=== PATIENT | female | born 1950 | race Two or more races ===

== ENCOUNTER 2019-11-05 13:02 | Inpatient (IN) | payer OTHER ==
[~2019-11-05] VITALS: Ht 162.6 cm; Wt 70.2 kg
[2019-11-05 14:03] LABS: Eosinophils # (auto) 0.2 10 ^3/uL (0-0.8); Hemoglobin 8.1 g/dL (12.2-16.2); Lymphocytes # (auto) 0.3 10 ^3/uL (0.4-5.4); Monocytes # (auto) 0.4 10 ^3/uL (0-1.3)
[2019-11-05 14:05] LABS: Basophils # (auto) 0.1 10 ^3/uL (0-0.2); Basophils % (auto) 1.3 % (0.0-2.0); Eosinophils % (auto) 4.6 % (0.0-7.0); Hematocrit 26.4 % (36.0-46.0); Lymphocytes % (auto) 7.8 % (10.0-50.0); Mean Corpuscular Hemoglobin 27.7 pg (28.0-32.0); Mean Corpuscular Hgb Conc. 30.7 g/dL (32.0-36.0); Mean Corpuscular Volume 90.2 fL (80.0-100.0); Monocytes % (auto) 8.5 % (0.0-12.0); Neutrophils # (auto) 3.5 10 ^3/uL (1.6-8.6); Neutrophils % (auto) 77.8 % (37.0-80.0); Nucleated Red Blood Cells % 2.9 %; Platelet Count (auto) 118 10^3/uL (140-450); Red Blood Cells 2.92 10^6/uL (4.0-5.20); White Blood Cell 4.5 10^3/uL (4.4-10.8)
[2019-11-05 14:06] LABS: Red Cell Distribution Width 22.2 % (11.8-14.3)
[2019-11-05 14:08] LABS: INR 1.3 (0.9-1.15); Partial Thromboplastin Time 32.7 sec (23.64-32.05)
[2019-11-05 14:28] LABS: Albumin 2.9 g/dL (3.4-5.0); Potassium 4.7 mmol/L (3.5-5.1)
[2019-11-05] MEDS ORDERED: ALBUMIN 25% 50 ML IV ONE (14:30)
[2019-11-05] MEDS ORDERED: SODIUM CHL 0.9% 1000 ML BAG XX ONE (14:30)
[2019-11-05] MEDS ORDERED: BUMETANIDE 2.5mg/10ml (0.25 mg/ml) INJ IV ONE (14:30)
[2019-11-05] MEDS ORDERED: SODIUM BICARBONATE 8.4 % INJ 50ML VIAL IV ONE ×2 (14:30→16:30)
[2019-11-05 14:35] LABS: Bilirubin, Total 0.3 mg/dL (0.2-1.0); Total Protein 6.9 g/dL (6.4-8.2)
[2019-11-05 14:53] LABS: % Iron Saturation 12.1 % (15-50)
[2019-11-05 14:59] LABS: Calcium 5.4 mg/dL (8.5-10.1)
[2019-11-05 16:19] LABS: Hepatitis A Ab IgM Negative
[2019-11-05 16:20] LABS: Hepatitis B Core IgM Negative; Hepatitis B Surface Antigen Negative (Negative)
[2019-11-05 16:21] LABS: Hepatitis C Antibody Negative (Negative)
[2019-11-05] MEDS ORDERED: SODIUM FERR GLUC 62.5MG/5ML 125 MG in SODIUM CHL 0.9% 100 ML IV ONE (16:30)
[2019-11-05] MEDS ORDERED: NITROGLYCERIN 0.4 MG SL TAB SL PRN ×2 (17:30→18:15)
[2019-11-05] MEDS ORDERED: MORPHINE SULF INJ 2 MG/ML SYRINGE 1ML IV PRN ×3 (17:30→18:15)
[2019-11-05] MEDS: CALCIUM ACETATE 667 MG CAP PO SCH ×2 (18:00→19:14)
[2019-11-05] MEDS ORDERED: PIPERACILLIN-TAZOB 2.25GM 50 ML IV ONE (18:15)
[2019-11-05] MEDS ORDERED: LORazepam 0.5 MG TAB PO PRN (18:15)
[2019-11-05] MEDS ORDERED: SILVER NITRATE-POTAS NITRA STICK TOP ONE (18:15)
[2019-11-05] MEDS ORDERED: ALUM & MAG HYDROX-SIMETH LIQ(MAALOX) 30 ML PO PRN (18:15)
[2019-11-05] MEDS ORDERED: PIPERACILLIN-TAZOB 0.75 GM in D5W 5% 50 ML IV PRN (18:45)
[2019-11-05 20:30] VITALS: BP 142/74
[2019-11-05] MEDS ORDERED: EPOETIN ALFA 10,000 UNIT/1 ML VIAL SC ONE (21:00)
[2019-11-05 22:40] VITALS: BP 142/74
[2019-11-05] MEDS: MUPIROCIN 2% OINT 15gm or 22gm EACHNOSTRI SCH (22:59)
[2019-11-05] MEDS: MUPIROCIN 2% OINT 15gm or 22gm TOP SCH (23:00)
[2019-11-06] MEDS ORDERED: hydrALAZINE HCL 20 MG/ML VL IV PRN (03:15)
[2019-11-06] MEDS: HYDROcodone-ACET 5/325MG TAB PO PRN (05:13)
[2019-11-06 05:15] VITALS: BP 124/58
[2019-11-06 05:41] LABS: Basophils # (auto) 0 10 ^3/uL (0-0.2); Eosinophils # (auto) 0 10 ^3/uL (0-0.8); Lymphocytes # (auto) 0.2 10 ^3/uL (0.4-5.4); Mean Corpuscular Hgb Conc. 31.2 g/dL (32.0-36.0); Monocytes # (auto) 0.4 10 ^3/uL (0-1.3); White Blood Cell 3.8 10^3/uL (4.4-10.8)
[2019-11-06 05:45] LABS: Basophils % (auto) 0.7 % (0.0-2.0); Eosinophils % (auto) 0.7 % (0.0-7.0); Hematocrit 25.1 % (36.0-46.0); Hemoglobin 7.8 g/dL (12.2-16.2); Lymphocytes % (auto) 5.4 % (10.0-50.0); Mean Corpuscular Hemoglobin 27.7 pg (28.0-32.0); Mean Corpuscular Volume 88.9 fL (80.0-100.0); Monocytes % (auto) 9.9 % (0.0-12.0); Neutrophils # (auto) 3.1 10 ^3/uL (1.6-8.6); Neutrophils % (auto) 83.3 % (37.0-80.0); Nucleated Red Blood Cells % 2.9 %; Platelet Count (auto) 76 10^3/uL (140-450); Red Blood Cells 2.82 10^6/uL (4.0-5.20)
[2019-11-06 06:00] LABS: INR 1.35 (0.9-1.15); Partial Thromboplastin Time 37.3 sec (23.64-32.05)
[2019-11-06 06:02] LABS: Magnesium 1.8 mg/dL (1.6-2.6); Potassium 4.5 mmol/L (3.5-5.1)
[2019-11-06 06:05] LABS: Bilirubin, Total 0.4 mg/dL (0.2-1.0); Phosphorus 6.8 mg/dL (2.5-4.90); Total Protein 6.8 g/dL (6.4-8.2)
[2019-11-06 06:25] LABS: Red Cell Distribution Width 21.5 % (11.8-14.3)
[2019-11-06 06:36] LABS: Calcium 5.7 mg/dL (8.5-10.1)
[2019-11-06] MEDS ORDERED: SODIUM CHL 0.9% 1000 ML BAG XX ONE (08:45)
[2019-11-06 09:00] VITALS: BP 158/67
[2019-11-06] MEDS ORDERED: PIPERACILLIN-TAZOB 2.25GM 50 ML IV SCH (10:00)
[2019-11-06] MEDS: ENOXAPARIN SOD 30 MG/0.3 ML SYRINGE SC SCH (10:00)
[2019-11-06] MEDS: MUPIROCIN 2% OINT 15gm or 22gm EACHNOSTRI SCH ×2 (10:25→21:42)
[2019-11-06] MEDS: FUROSEMIDE 40 MG/4 ML VIAL IV SCH ×2 (10:26→10:28)
[2019-11-06] MEDS: MUPIROCIN 2% OINT 15gm or 22gm TOP SCH ×2 (10:27→21:42)
[2019-11-06] MEDS: ONDANSETRON HCL 4 MG/2 ML VIAL IV PRN ×2 (11:11→21:16)
[2019-11-06] MEDS ORDERED: IRON SUCROSE COMPLEX 200 MG in SODIUM CHL 0.9% 100 ML IV SCH (12:00)
[2019-11-06 13:00] VITALS: BP 141/69
[2019-11-06] MEDS: SODIUM FERR GLUC 125 MG in NS 100 ML IV SCH (13:16)
[2019-11-06] MEDS ORDERED: IODIXANOL 320MG/ML 100ML BTL IV ONE (14:27)
[2019-11-06] MEDS ORDERED: LIDOCAINE 2%HCL (LOCAL ANESTH.) INJ 20ML MDV ONE (14:27)
[2019-11-06] MEDS ORDERED: MIDAZOLAM HCL 1MG/1ML-2 ML VIAL ONE (15:03)
[2019-11-06] MEDS ORDERED: fentaNYL CITRATE 100 MCG/2 ML VL ONE (15:03)
[2019-11-06] MEDS ORDERED: ATROPINE SULF 1 MG/10ml SYR ONE (15:03)
[2019-11-06] MEDS ORDERED: HEPARIN SODIUM (PORCINE) 5000 UNITS/ML 1ML VIAL ONE (15:03)
[2019-11-06] MEDS ORDERED: PHENYLEPHRINE HCL 10 MG/ML VL ONE (15:32)
[2019-11-06] MEDS ORDERED: ONDANSETRON HCL 4 MG/2 ML VIAL IV PRN (16:30)
[2019-11-06 17:00] VITALS: BP_SYST 125; BP_SYST 158; BP_DIAS 67; BP_DIAS 69
[2019-11-06] MEDS ORDERED: FUROSEMIDE 40 MG/4 ML VIAL IV SCH (19:00)
[2019-11-06] MEDS ORDERED: EPOETIN ALFA 10,000 UNIT/1 ML VIAL SC ONE (21:00)
[2019-11-06 22:00] VITALS: BP 135/64
[2019-11-07 01:19] LABS: Urine Bacteria FEW /hpf (None Seen); Urine Blood 1+ /uL (Negative); Urine Specific Gravity 1.009 (1.001-1.035); Urine WBC 17 /hpf (0 - 5)
[2019-11-07 05:00] VITALS: BP 115/65
[2019-11-07] MEDS: ONDANSETRON HCL 4 MG/2 ML VIAL IV PRN ×2 (05:04→17:47)
[2019-11-07] MEDS: HYDROcodone-ACET 5/325MG TAB PO PRN ×2 (05:04→20:43)
[2019-11-07 09:00] VITALS: BP 128/67
[2019-11-07] MEDS: MUPIROCIN 2% OINT 15gm or 22gm EACHNOSTRI SCH ×2 (09:52→22:39)
[2019-11-07] MEDS: ENOXAPARIN SOD 30 MG/0.3 ML SYRINGE SC SCH (09:52)
[2019-11-07] MEDS: MUPIROCIN 2% OINT 15gm or 22gm TOP SCH ×2 (09:54→22:00)
[2019-11-07] MEDS: FUROSEMIDE 40 MG/4 ML VIAL IV SCH (09:54)
[2019-11-07 13:00] VITALS: BP 121/66
[2019-11-07] MEDS: SODIUM FERR GLUC 125 MG in NS 100 ML IV SCH (13:50)
[2019-11-07 17:39] VITALS: BP 155/81
[2019-11-07 22:00] VITALS: BP 147/80
[2019-11-08] MEDS: ONDANSETRON HCL 4 MG/2 ML VIAL IV PRN ×2 (04:50→11:33)
[2019-11-08] MEDS: HYDROcodone-ACET 5/325MG TAB PO PRN (04:50)
[2019-11-08 05:39] VITALS: BP 144/65
[2019-11-08 05:52] LABS: Eosinophils # (auto) 0 10 ^3/uL (0-0.8); Hemoglobin 7.6 g/dL (12.2-16.2); Monocytes # (auto) 0.6 10 ^3/uL (0-1.3); White Blood Cell 4.9 10^3/uL (4.4-10.8)
[2019-11-08 05:54] LABS: Basophils # (auto) 0.1 10 ^3/uL (0-0.2); Basophils % (auto) 1.2 % (0.0-2.0); Eosinophils % (auto) 0.6 % (0.0-7.0); Hematocrit 24.1 % (36.0-46.0); Lymphocytes # (auto) 0.4 10 ^3/uL (0.4-5.4); Lymphocytes % (auto) 7.5 % (10.0-50.0); Mean Corpuscular Hemoglobin 28.2 pg (28.0-32.0); Mean Corpuscular Hgb Conc. 31.4 g/dL (32.0-36.0); Mean Corpuscular Volume 89.8 fL (80.0-100.0); Monocytes % (auto) 12.1 % (0.0-12.0); Neutrophils # (auto) 3.8 10 ^3/uL (1.6-8.6); Neutrophils % (auto) 78.6 % (37.0-80.0); Platelet Count (auto) 72 10^3/uL (140-450); Red Blood Cells 2.68 10^6/uL (4.0-5.20)
[2019-11-08 06:08] LABS: Nucleated Red Blood Cells % 7.5 %; Red Cell Distribution Width 22.2 % (11.8-14.3)
[2019-11-08 06:18] LABS: Albumin 2.2 g/dL (3.4-5.0); Potassium 4.4 mmol/L (3.5-5.1)
[2019-11-08 06:22] LABS: BUN/Creatinine Ratio 8.5; Bilirubin, Total 0.3 mg/dL (0.2-1.0); Phosphorus 6.8 mg/dL (2.5-4.90); Total Protein 5.4 g/dL (6.4-8.2)
[2019-11-08] MEDS ORDERED: SODIUM CHL 0.9% 1000 ML BAG XX ONE (07:00)
[2019-11-08 07:29] LABS: Calcium 5.6 mg/dL (8.5-10.1)
[2019-11-08] MEDS: ENOXAPARIN SOD 30 MG/0.3 ML SYRINGE SC SCH (08:57)
[2019-11-08 09:00] VITALS: BP 143/78
[2019-11-08] MEDS: FUROSEMIDE 40 MG/4 ML VIAL IV SCH (09:03)
[2019-11-08] MEDS: MUPIROCIN 2% OINT 15gm or 22gm TOP SCH ×2 (09:04→22:00)
[2019-11-08] MEDS: MUPIROCIN 2% OINT 15gm or 22gm EACHNOSTRI SCH ×2 (09:04→22:11)
[2019-11-08] MEDS: CALCIUM ACETATE 667 MG CAP PO SCH ×2 (11:32→17:12)
[2019-11-08 13:00] VITALS: BP 133/71
[2019-11-08] MEDS: SODIUM FERR GLUC 125 MG in NS 100 ML IV SCH (15:11)
[2019-11-08 17:00] VITALS: BP 157/84
[2019-11-08 18:43] VITALS: BP 120/61
[2019-11-08] MEDS ORDERED: EPOETIN ALFA 10,000 UNIT/1 ML VIAL SC ONE (21:00)
== END 2019-11-08 22:30 | disposition left against medical advice (07) | DRG 673 ==
LOC: ER 13:02 → TELE 13:03 → TELE-WESTW 20:15
PROVIDERS: ADMIT Hospitalist; ATTEND Internal Medicine
PROC: 5A1D70Z Performance of Urinary Filtration, Intermittent, Less than 6 Hours Per Day (ICD-10-PCS; 2019-11-05)
PROC: 0JH63XZ Insertion of Tunneled Vascular Access Device into Chest Subcutaneous Tissue and Fascia, Percutaneous Approach (ICD-10-PCS; principal; 2019-11-06)
PROC: 02HV33Z Insertion of Infusion Device into Superior Vena Cava, Percutaneous Approach (ICD-10-PCS; 2019-11-06)
PROC: B5181ZA Fluoroscopy of Superior Vena Cava using Low Osmolar Contrast, Guidance (ICD-10-PCS; 2019-11-06)
PROC: B548ZZA Ultrasonography of Superior Vena Cava, Guidance (ICD-10-PCS; 2019-11-06)
PROC: 5A1D70Z Performance of Urinary Filtration, Intermittent, Less than 6 Hours Per Day (ICD-10-PCS; 2019-11-06)
PROC: 5A1D70Z Performance of Urinary Filtration, Intermittent, Less than 6 Hours Per Day (ICD-10-PCS; 2019-11-08)
DX: I12.0 Hypertensive chronic kidney disease with stage 5 chronic kidney disease or end stage renal disease (principal); J18.9 Pneumonia, unspecified organism; E43 Unspecified severe protein-calorie malnutrition; N18.6 End stage renal disease; E87.2 Acidosis; I16.9 Hypertensive crisis, unspecified; N25.81 Secondary hyperparathyroidism of renal origin; E87.70 Fluid overload, unspecified; D63.1 Anemia in chronic kidney disease; E11.22 Type 2 diabetes mellitus with diabetic chronic kidney disease; E83.39 Other disorders of phosphorus metabolism; E78.5 Hyperlipidemia, unspecified; D50.9 Iron deficiency anemia, unspecified; D69.6 Thrombocytopenia, unspecified; Z99.2 Dependence on renal dialysis; Z68.26 Body mass index [BMI] 26.0-26.9, adult; Z79.899 Other long term (current) drug therapy; Z53.29 Procedure and treatment not carried out because of patient's decision for other reasons
CPT/HCPCS: 36415; 36556; 71045; 76942; 80053; 80061; 80074; 81001; 82728; 83036; 83540; 83550; 83735; 83880; 83970; 84100; 84484; 85025; 85610; 85730; 87040; 87081; 87086; 90935; 93005; 93306; 96374; 96375; 99152; 99291; G0378; J0885; J1642; J1756; J2250; J2405; J2543; Q9967

== ENCOUNTER 2019-12-07 10:28 | Inpatient (IN) | payer OTHER ==
[~2019-12-07] VITALS: Ht 162.6 cm; Wt 79.0 kg
[2019-12-07 11:34] LABS: Basophils # (auto) 0.1 10 ^3/uL (0-0.2); Basophils % (auto) 0.8 % (0.0-2.0); Eosinophils # (auto) 0 10 ^3/uL (0-0.8); Mean Corpuscular Volume 93.4 fL (80.0-100.0)
[2019-12-07 11:35] LABS: Eosinophils % (auto) 0.4 % (0.0-7.0); Hematocrit 22.1 % (36.0-46.0); Lymphocytes # (auto) 0.5 10 ^3/uL (0.4-5.4); Lymphocytes % (auto) 7.2 % (10.0-50.0); Mean Corpuscular Hemoglobin 29.7 pg (28.0-32.0); Mean Corpuscular Hgb Conc. 31.8 g/dL (32.0-36.0); Monocytes # (auto) 0.3 10 ^3/uL (0-1.3); Monocytes % (auto) 4.9 % (0.0-12.0); Neutrophils % (auto) 86.7 % (37.0-80.0); Nucleated Red Blood Cells % 0.3 %; Platelet Count (auto) 259 10^3/uL (140-450); Red Blood Cells 2.37 10^6/uL (4.0-5.20); White Blood Cell 6.9 10^3/uL (4.4-10.8)
[2019-12-07 11:39] LABS: Red Cell Distribution Width 20.7 % (11.8-14.3)
[2019-12-07 11:47] LABS: INR 1.35 (0.9-1.15); Partial Thromboplastin Time 40.4 sec (23.64-32.05)
[2019-12-07 15:49] LABS: Albumin 2.3 g/dL (3.4-5.0); Calcium 6.9 mg/dL (8.5-10.1); Magnesium 2.5 mg/dL (1.6-2.6); Potassium 4.8 mmol/L (3.5-5.1)
[2019-12-07 15:54] LABS: BUN/Creatinine Ratio 12.7; Bilirubin, Total 0.6 mg/dL (0.2-1.0); Total Protein 7.3 g/dL (6.4-8.2)
[2019-12-07] MEDS ORDERED: DexAMETHasone SOD PHOS 10MG/1ML VIAL INJ IV ONE ×2 (20:30→21:15)
[2019-12-07] MEDS ORDERED: DOCUSATE SOD 100 MG CAP PO PRN ×2 (20:45→21:15)
[2019-12-07] MEDS ORDERED: NITROGLYCERIN 0.4 MG SL TAB SL PRN ×2 (20:45→21:15)
[2019-12-07] MEDS ORDERED: ACETAMINOPHEN 500 MG TAB PO PRN ×2 (20:45→21:15)
[2019-12-07] MEDS ORDERED: ACETAMINOPHEN 325 MG TAB PO PRN ×2 (20:45→21:15)
[2019-12-07] MEDS ORDERED: MORPHINE SULF INJ 2 MG/ML SYRINGE 1ML IV PRN ×4 (20:45→21:15)
[2019-12-07] MEDS ORDERED: HYDROcodone-ACET 5/325MG TAB PO PRN ×2 (20:45→21:15)
[2019-12-07] MEDS ORDERED: ONDANSETRON HCL 4 MG/2 ML VIAL IV PRN ×2 (20:45→21:15)
[2019-12-07] MEDS ORDERED: DOXYCYCLINE 100 MG TAB/CAP PO SCH (22:00)
[2019-12-07] MEDS ORDERED: ALBUTEROL SULF HFA 90MCG INH 200DOSE IN SCH ×2 (22:00)
[2019-12-07] MEDS ORDERED: CARVEDILOL 3.125 MG TAB PO SCH (22:00)
[2019-12-07] MEDS ORDERED: ATORVASTATIN 20 MG TAB PO SCH (22:00)
[2019-12-07] MEDS ORDERED: ENOXAPARIN SOD 60 MG/0.6 ML SYRINGE SC SCH (22:00)
[2019-12-07] MEDS: DOXYCYCLINE 100MG/250ML 250 ML IV ONE (23:28)
[2019-12-07] MEDS: CARVEDILOL 3.125 MG TAB PO SCH (23:31)
[2019-12-07] MEDS: ATORVASTATIN 20 MG TAB PO SCH (23:31)
[2019-12-07] MEDS: DOXYCYCLINE 100 MG TAB/CAP PO SCH (23:31)
[2019-12-07] MEDS: ENOXAPARIN SOD 60 MG/0.6 ML SYRINGE SC SCH (23:32)
[2019-12-08] VITALS (11 sets, daily range): BP systolic 119–145; BP diastolic 55–80
[2019-12-08] MEDS: DOXYCYCLINE 100MG/250ML 250 ML IV ONE (00:49)
[2019-12-08 08:50] LABS: Hematocrit 32.2 % (36.0-46.0); Hemoglobin 10.1 g/dL (12.2-16.2); Mean Corpuscular Hemoglobin 29.3 pg (28.0-32.0); Mean Corpuscular Hgb Conc. 31.4 g/dL (32.0-36.0); Mean Corpuscular Volume 93.2 fL (80.0-100.0); Platelet Count (auto) 218 10^3/uL (140-450); Red Blood Cells 3.45 10^6/uL (4.0-5.20); Red Cell Distribution Width 18.3 % (11.8-14.3); White Blood Cell 6.4 10^3/uL (4.4-10.8)
[2019-12-08 09:09] LABS: Calcium 6.7 mg/dL (8.5-10.1); Magnesium 2.4 mg/dL (1.6-2.6); Potassium 5.2 mmol/L (3.5-5.1)
[2019-12-08 09:14] LABS: BUN/Creatinine Ratio 12.9; Bilirubin, Total 0.8 mg/dL (0.2-1.0); Total Protein 6.8 g/dL (6.4-8.2)
[2019-12-08] MEDS ORDERED: ASPirin 81 mg TAB PO SCH (10:00)
[2019-12-08] MEDS ORDERED: ENOXAPARIN SOD 40 MG/0.4 ML SYRINGE SC SCH (10:00)
[2019-12-08] MEDS ORDERED: CLOPIDOGREL BISULFATE 75 MG TAB PO SCH (10:00)
[2019-12-08] MEDS ORDERED: ASCORBIC ACID 1,000 MG TAB PO SCH ×2 (10:00)
[2019-12-08] MEDS ORDERED: ZINC SULFATE 220mg CAP or TAB PO SCH ×2 (10:00)
[2019-12-08] MEDS ORDERED: LISINOPRIL 10 MG TAB PO SCH ×2 (10:00)
[2019-12-08 10:14] LABS: Band Neutrophils % (manual) 0; Basophils % (manual) 0 (0.0-2.0); Blast Cells 0; Eosinophils % (manual) 0 (0-7); Metamyelocytes % 0; Myelocytes % 0; Promyelocytes % 0; Reactive Lymphocytes 0
[2019-12-08 10:17] LABS: Lymphocytes % (manual) 3 (10.0-50.0); Monocytes % (manual) 2 (0-12)
[2019-12-08] MEDS: CARVEDILOL 3.125 MG TAB PO SCH ×3 (10:39→22:06)
[2019-12-08] MEDS: ASPirin 81 mg TAB PO SCH (10:39)
[2019-12-08] MEDS: ENOXAPARIN SOD 60 MG/0.6 ML SYRINGE SC SCH (10:40)
[2019-12-08] MEDS: CLOPIDOGREL BISULFATE 75 MG TAB PO SCH (10:40)
[2019-12-08] MEDS: DOXYCYCLINE 100 MG TAB/CAP PO SCH ×2 (10:40→22:07)
--- NOTE | 2019-12-08 12:21 | NUR ---
WOUND CARE NOTE: Wound care in to see patient per wound care request regarding wounds that are noted present on admission. Patient is 69 years old female admitted to [facility]. Patient is resting in ED bed 12. Patient is awake, alert and follow direction. Patient is in no stated pain at this time, however reports her legs are painful to touch. She's able to assist in turning and repositioning and her Robert score is 15. Noted patient's bilateral lower leg has multi full thickness ulceration with no measurable depth. Patient's Rt medial lower leg wound measuring 4x3cm, red/pink wound bed with yellow adherent slough. Rt posterior lower leg wound measuring 2x2.5cm, red wound bed with dark red sharee wound. Minimal serous drainage noted in RLE wounds, no odor noted. Patient's L anterior landry has 10.5x11 open full thickness wound with no measurable depth. Wound bed is pale pink, sharee wound is bright/dark red. Posterior L lower leg wound measuring 5x3cm, red wound bed. L dorsal foot wound measuring [id number]. Pale pink and yellow wound bed,macerated sharee wound and L 2nd, L 3rd and L 4th toe are blackened. LLE wounds has moderate serous drainage, with foul odor noted. Patient's BLE has mild edema and erythema. Cleansed patient's BLE wounds with wound cleanser, patted dry with gauze, applied Xeroform dressing and abd pads, wrapped with Kerlix and secured with tape. Photograph of patient's wounds are taken for reference. Patient reported that she has had the BLE wounds for three months and has home health nurse that visit daily for wound dressing. Patient tolerated well, no other wound noted, no pressure injury noted. RECOMMENDATION: Nursing to continue with Daily/PRN dressing change to BLE wounds per MD order,surgical/podiatry consult, Dietary consult, frequent turning and repositioning schedule as condition permits, redistribute pressure points with pillows, elevate BLE on pillows, continue monitoring by wound care while patient is hospitalized. Addendum: 07/28/20 at 1730 by Tiffanie Hamilton RN Amended: Links added.
--- NOTE | 2019-12-08 12:25 | NUR ---
Report received from ER May RN. Patient arrived to PACU VSS, awake and alert. No S/S of distress/SOB or pain, VSS, will continue to monitor PRN.
[2019-12-08] MEDS ORDERED: SODIUM CHL 0.9% 1000 ML BAG XX ONE (13:00)
--- NOTE | 2019-12-08 15:22 | NUR ---
Dialysis completed, vss. Will continue to monitor. Page for Dr. Silva at this time.
--- NOTE | 2019-12-08 15:44 | NUR ---
Dr. Silva return MD heydi aware patient refused to take medications and documented in the eMAR.
--- NOTE | 2019-12-08 16:27 | NUR ---
Patient is a 69-year-old female who is alert and oriented. Prior to admission patient lived home with her Walter and functioned with assistance. Per patient her Walter helps her with her ADLs. Per patient she has a walker with seat. Patient informed me she is on dialysis with [facility] on T, Th, S time-14:00-17:00. Advised patient there is a social service consult for hospice evaluation. Per patient doctor did not speak to her in regards of hospice. Per patient she will return home to her prior living arrangements post discharge and her will transport her home. Informed patient she has the right to participate in all discharge planning. Patient verbalized understanding and agreed to discharge plan. Placed call to JENNIFFER Whitt with [facility] advising her provider needs to speak to patient and family regarding hospice. Per JENNIFFER Whitt with [facility] she will informed provider. Addendum: 12/08/19 at 1632 by MICHELET RODRIGUEZ Amended: Links added.
--- NOTE | 2019-12-08 17:18 | NUR ---
Report provided in detail to Sarahy RANGEL, all questions and concerns addressed. Addendum: 12/08/19 at 1809 by ALLISON ALAMO RN Report was provided in detail to Allison RANGEL
--- NOTE | 2019-12-08 18:42 | NUR ---
PATIENTS LEGS WERE WRAPPED THIS AFTERNOON BY WOUND CARE NURSE, UNABLE TO FULLY ASSESS BILATERAL LOWER EXTREMITIES AT THIS TIME. Addendum: 12/08/19 at 1847 by ALLISON QUIROZ RN RN Amended: Links added.
[2019-12-08] MEDS ORDERED: CLIN150C PO (18:56)
[2019-12-08] MEDS ORDERED: EPOETIN ALFA 4,000 UNIT/ML VL SC ONE (21:00)
[2019-12-08] MEDS: ATORVASTATIN 20 MG TAB PO SCH (22:07)
[2019-12-09 05:40] VITALS: BP 117/59
[2019-12-09 08:42] VITALS: BP 134/77
--- NOTE | 2019-12-09 09:36 | NUR ---
PT HAS BEEN CONFUSED THIS AM. SE IS INSISTENT THAT THE PARAMEDICS ARE HER TO PICK HER UP TO TAKE HER HOME. CALL MADE TO HER TO ESTABLISH HER LEVEL OF FUNCTION AT HOME PRIOR TO ADMIT HERE. HE REPORTS THAT EVER SENSE SHE FELL A SHORT TIME AGO SHE HAS BEEN UNABLE TO WALK. HE HAS BEEN UNABLE TO TAKE HER TO [facility] FOR HD BECAUSE HE CANT GET HER INTO A VEHICLE. THEY HAVE NO WC AT HOME ONLY WALKER AND SHE CANNOT BEAR WEIGHT. HE REPORTS TRANSPORTATION IS PROVIDED FOR HER TO BE PICKED UP AND TAKEN TO HD BUT [facility] TOLD HIM SHE HAS TO BE ABLE TO TRANSFER INDEPENDENTLY TO THE HD CHAIR OTHERWISE THEY WILL NOT TREAT HER. THIS IS THE REASON THAT SHE MISSED HER HD. IS A AND HAS [facility] BENEFITS. HE IS DISABLED WITH MULTIPLE DISCS DAMAGED IN HIS BACK, NO CARTILAGE IN LT KNEE AND PHYSICALLY UNABLE TO LIFT HER. HE REPORTS THAT THEIR 40 YR UNEMPLOYED SON WHO HAS TROUBLE WITH ETOH AND DRUG USE HAS A ROOM IN [facility]. HE HAS BEEN ASKED TO COME STAY WITH THEM AND HELP TAKE CARE OF HIS MOM. STATES HE IS UNSURE IF THE SON WILL BE GOING TO GROUP HOME FOR 2 YRS WHEN HE HAS HIS NEXT COURT HEARING. HE SHARES THAT THEIR DAUGHTER IN THE ER AND THEY BOTH DON'T LIKE BEING IN THE HOSPITAL. THEIR SON AT HOME ON HOSPICE IN 2003. WE DISCUSSED WHAT KIND OF OPTIONS WOULD BE LIKELY IF HIS SON IS UNABLE TO ASSIST IN CARING FOR HIS MOM. SNF, BOARD AND CARE, IF AT HOME COULD HE HIRE A CAREGIVER?
[2019-12-09 10:22] LABS: BUN/Creatinine Ratio 11.7; Calcium 6.9 mg/dL (8.5-10.1); Potassium 4.2 mmol/L (3.5-5.1)
--- NOTE | 2019-12-09 10:50 | NUR ---
Attempted PT eval. Pt is very sleepy upon entering the room and barely opens eyes. Pt was able to speak with me but very slowly and she continues to fall back asleep. Will attempt again this afternoon to see if pt is able to participate.
[2019-12-09] MEDS: CARVEDILOL 3.125 MG TAB PO SCH ×2 (11:00→22:53)
[2019-12-09] MEDS: ASPirin 81 mg TAB PO SCH (11:00)
[2019-12-09] MEDS: CLOPIDOGREL BISULFATE 75 MG TAB PO SCH (11:00)
[2019-12-09] MEDS: DOXYCYCLINE 100 MG TAB/CAP PO SCH (11:00)
[2019-12-09 13:00] VITALS: BP 130/68
--- NOTE | 2019-12-09 15:02 | NUR ---
CONTINUES TO BE CONFUSED AT TIMES. REPORTS THAT SHE HAS BEEN SEEING THINGS THAT ARE NOT THERE LIKE SPIDERS, AND REFUSES TO TAKE ANY MEDICATIONS STATING SHE BELIEVES THAT IS RESPONSIBLE FOR HER HALLUCINATIONS. SHE AGREES TO TAKE ASA AND ANTIBIOTIC, BUT NO OTHERS. ROOM MATE SHARES THAT PT HAS BEEN C/O SEEING SPIDERS NOT THERE. PT USES CALL LIGHT TO REPORT SHE IS BLEEDING. SHE HAS PUTTED OUT IV HL TO RT AC. BLOOD SATURATED LINEN SPOT 8" IN EMMA SOAKING THROUGH BATH BLANKET, BED BLANKET AND HER SWEAT SHIRT SLEEVE. SHE HAD PLACED A WAD OF TISSUE IN THE AC AND IT WAS SATURATED WELL. BLEEDING HAD STOPPED DSG APPLIED WITH [facility] DSG. PTS SON CALLS ON THE PHONE WHILE CLEANING HER UP. CALLS MULTIPLE TIMES. HE IS HOPING TO SPEAK WITH THE DOCTOR TO LEARN HER PROGNOSIS AND POC FROM HERE.
--- NOTE | 2019-12-09 15:07 | NUR ---
Nutrition Assessment/consult Notes please see attached link for complete assessment [employer] needs ABW 66 [id number] kcals (27-30 kcal/kgBW), Est Protein needs: 79-92 gms/day (1.2-1.4 gm/kgABW r/t wounds hd). Will continue to monitor and reassess prn. Addendum: 12/09/19 at [address] Amended: Links added.
[2019-12-09 17:00] VITALS: BP 128/78
--- NOTE | 2019-12-09 17:56 | NUR ---
2nd attempt made for PT eval. Pt was on the phone and requested I return later.
[2019-12-09 22:00] VITALS: BP 126/65
[2019-12-09] MEDS: ATORVASTATIN 20 MG TAB PO SCH (22:54)
[2019-12-10 05:00] VITALS: BP 125/76
[2019-12-10] MEDS ORDERED: SODIUM CHL 0.9% 1000 ML BAG XX ONE (07:00)
--- NOTE | 2019-12-10 07:40 | NUR ---
Shift opening note Received patient lying in bed sleeping comfortably and was in no distress. Patient easily awakened and voiced no c/o pain/ discomfort at this time. Shift assessment done and charted. Plan of care, medications, treatments and safety discussed with patient and patient verbalized understanding. Will continue to monitor patient.
[2019-12-10 08:43] VITALS: BP 125/66
--- NOTE | 2019-12-10 09:56 | NUR ---
D/C Planning Regarding social service consult for hospice. Spoke to patient this morning regarding order. Per Patient she is not interested on going home with hospice. Informed CLAIRE Hatfield. Placed called to JENNIFFER Whitt with [facility] advising her patient does not want to go home on hospice. Per JENNIFFER Whitt she will contact patient. Advised JENNIFFER Whitt we can placed conference call with patient regarding hospice. JENNIFFER Whitt verbalize understanding and agree to speak to patient via conference call. Patient informed JENNIFFER Whitt and my self she does not want Hospice. Per JENNIFFER Whitt she will contact patient . Per patient she can make her own decision and does not want to go home on hospice. Per patient her can take her to her dialysis days. Patient verbalize understanding. JENNIFFER Whitt with [facility] stated she will contact patient and provider regarding discharge plan.
[2019-12-10] MEDS: CLOPIDOGREL BISULFATE 75 MG TAB PO SCH (10:00)
--- NOTE | 2019-12-10 10:30 | NUR ---
Discharge Planning Dr. Aly phoned and stated that he will discharge the patient since patient refused hospice today and will send prescriptions to patient's pharmacy. Patient for hemodialysis today and will be discharged after. Patient aware of plan to discharge her today.
[2019-12-10] MEDS: DOXYCYCLINE 100 MG TAB/CAP PO SCH (10:32)
[2019-12-10] MEDS: ASPirin 81 mg TAB PO SCH (10:32)
[2019-12-10] MEDS: CARVEDILOL 3.125 MG TAB PO SCH (10:33)
[2019-12-10 12:39] VITALS: BP 138/65
--- NOTE | 2019-12-10 14:24 | NUR ---
D/C planning Regarding social service consult for home health wound care, rip lift and wheel chair. Faxed clinical information to [facility], [facility] and [facility]. Per Rebecca with [facility] [phone] they will service patient within 24-48hrs upon d/c day. [employer] will deliver wheelchair to front lobby between 15:00-17:30 and rip lift to patient home.
[2019-12-10] MEDS ORDERED: DOX100T PO (16:36)
[2019-12-10 16:37] VITALS: BP 124/59
[2019-12-10] MEDS ORDERED: ASPI81CH43 PO (17:59)
[2019-12-10] MEDS ORDERED: ATOR20TA50 PO (17:59)
[2019-12-10] MEDS ORDERED: CAR3125T PO (17:59)
--- NOTE | 2019-12-10 18:06 | NUR ---
Patient refused to have pictures of her wounds taken.
--- NOTE | 2019-12-10 18:35 | NUR ---
Discharge instructions given as ordered. Encourage to follow up with PMD as instructed. All questions and concerns addressed. Patient verbalized understanding. Medication reconciliation form completed and copy given to patient. . IV removed with catheter intact, pressure dressing applied, draper catheter removed. Telemetry unit returned to ICU. Patient taken to vehicle via wheelchair with all personal belongings, accompanied by staff and family member. Ordered wheelchair sent with patient. No distress noted at time of departure.
[2019-12-10] MEDS ORDERED: EPOETIN ALFA 4,000 UNIT/ML VL SC ONE (21:00)
== END 2019-12-10 18:35 | disposition home health service (06) | DRG 291 ==
LOC: ER 10:28 → TELE 10:29 → TELE-WESTW 12-08 17:49
PROVIDERS: ADMIT Hospitalist; ATTEND Hospitalist
PROC: 30230N1 Transfusion of Nonautologous Red Blood Cells into Peripheral Vein, Open Approach (ICD-10-PCS; principal; 2019-12-08)
PROC: 5A1D70Z Performance of Urinary Filtration, Intermittent, Less than 6 Hours Per Day (ICD-10-PCS; 2019-12-08)
PROC: 5A1D70Z Performance of Urinary Filtration, Intermittent, Less than 6 Hours Per Day (ICD-10-PCS; 2019-12-10)
DX: I13.2 Hypertensive heart and chronic kidney disease with heart failure and with stage 5 chronic kidney disease, or end stage renal disease (principal); J96.01 Acute respiratory failure with hypoxia; N18.6 End stage renal disease; I50.43 Acute on chronic combined systolic (congestive) and diastolic (congestive) heart failure; T81.30XA Disruption of wound, unspecified, initial encounter; I31.3 Pericardial effusion (noninflammatory); J90 Pleural effusion, not elsewhere classified; I42.0 Dilated cardiomyopathy; D63.1 Anemia in chronic kidney disease; E78.00 Pure hypercholesterolemia, unspecified; E11.22 Type 2 diabetes mellitus with diabetic chronic kidney disease; E78.5 Hyperlipidemia, unspecified; E87.5 Hyperkalemia; Z99.2 Dependence on renal dialysis; Z90.49 Acquired absence of other specified parts of digestive tract; Z83.3 Family history of diabetes mellitus; Z82.49 Family history of ischemic heart disease and other diseases of the circulatory system; Z80.9 Family history of malignant neoplasm, unspecified; Z20.828 Contact with and (suspected) exposure to other viral communicable diseases; I87.8 Other specified disorders of veins
CPT/HCPCS: 36415; 71045; 71250; 76705; 80048; 80053; 80061; 83036; 83735; 83880; 84443; 84484; 85007; 85025; 85027; 85610; 85730; 86850; 86900; 86901; 86920; 87040; 87081; 90935; 93005; 93306; G0378; J1100; J1642; J3490